=== PATIENT | male | born 1940 | race Caucasian/White ===

== ENCOUNTER 2016-08-26 13:27 | Emergency (ER) | payer MEDICARE ==
[2016-08-26] MEDS ORDERED: ALBUTEROL SULFATE 2.5 MG/3 ML VIAL.NEB IH ONE (14:02)
[2016-08-26] MEDS ORDERED: ALBUTEROL SULFATE 2.5 MG/0.5 ML VIAL.NEB IH ONE (14:03)
[2016-08-26 14:15] LABS: Hemoglobin 15.3 gm/dL (13.5-18.0); Mean Cell Volume 86.5 fl (78-100); Mean Corpuscular Hemoglobin 29.4 pg (27-31); Neutrophil # 6.9 K/mm3 (1.3-6.0); Neutrophil % 79.6 % (42-75.0); Platelet Count 319 K/mm3 (150-450); Red Cell Distribution Width 12.6 % (11.5-14.0); White Blood Count 8.7 K/mm3 (4.0-10.5)
--- NOTE | 2016-08-26 14:18 | ERNOTE ---
Dizziness ER Record Presenting Symptoms: dizziness Time Seen by Provider: 08/26/16 13:43 Source: patient Exam Limitations: no limitations Immunizations: IMMUNIZATION HX Immunizations Up to Date No History of Influenza Vaccine No Hx Pneumococcal Vaccination No Allergies/Adverse Reactions: Allergies Allergy/AdvReac Type Severity Reaction Status Date / Time prednisone Allergy Verified 08/26/16 14:37 Home Medications: HOME MEDICATIONS Levothyroxine Sodium [Synthroid] 50 mcg PO DAILY 12/11/14 [Last Taken Unknown] Albuterol Sulfate [Proventil Hfa] 2 puff IH PRN PRN 09/26/15 [Last Taken Unknown ] Budesonide/Formoterol Fumarate [Symbicort 160-4.5 Mcg Inhaler] 2 puff IH BID [Last Taken Unknown] Xanax 0.25 mg PO TID PRN 10/10/15 [Last Taken Unknown] - History of Present Illness Narrative: Patient has been dizzy for about three weeks, the symptoms get worse at times , not sure whether that is related to head movement. He has had a tinnitus intermittently for a while, chronic hearing loss, no neuro deficits, no other symptoms Associated Symptoms: Present: hearing loss, ringing/roaring in ear, light headedness. Absent: ear pain, nausea, vomiting, sense of confusion Sense of movement: Present: vague Decreased ability to stand/walk:: Present: walks w/o assistance Usually:: Present: walks w/o assistance Modifying Factors - (Improves): Reports: changing position Prior Treament: Reports: recently seen - by PCP for ingrown toenail. Denies: similar symptoms before Review of Systems - Review of Systems Constitutional: Present: fatigue. Absent: recent illness, fever EYE: Absent: vision changes ENT: Absent: nose congestion, sore throat Respiratory: Absent: shortness of breath Cardiology: Absent: chest pain Gastrointestinal/Abdominal: Absent: nausea, abdominal pain Genitourinary: Present: no symptoms reported Musculoskeletal: Absent: back pain, neck pain Skin: Absent: rash Neurological: Present: dizziness/light-headedness. Absent: headache, weakness, numbness - Patient's Past Medical History Patient History - Medical: Anxiety, Chronic Pain, Hypothyroidism, Other Patient History - Cardiac/Respiratory: CVA/Stroke Patient History - Cancer: No Hx of Cancer Patient History - Surgical Procedures: Other Patient History - Other: None - Family History Parents Family History - Medical: , No pertinent hx - Social History Living Situations: alone Abuse History: No History of abuse Psych History: Hx of Anxiety Smoking Status: Former smoker Have you smoked in the past 12 months: Yes Alcohol Use: occasionally Drug Use: none - Immunizations Immunizations Up to Date: No Hx Pneumococcal Vaccination: No History of Influenza Vaccine: No Physical Exam - Physical Exam General Appearance: Present: wd/wn, alert, no apparent distress Head Exam: Present: normal inspection, no evidence of injury Eye Exam: Normal inspection: bilateral, PERRL: bilateral, EOMI: bilateral Ears, Nose, Throat: Present: normal ENT inspection, normal pharynx Neck: Present: normal inspection, nontender, supple, full range of motion Respiratory: Present: no respiratory distress, normal breath sounds, no accessory muscle use, lungs clear Cardiovascular/Chest: Present: regular rate, rhythm, no murmur Gastrointestinal/Abdominal: Present: normal bowel sounds, nontender, nondistended, soft Neurological Exam: Present: alert, oriented, normal mood/affect, no motor/ sensory deficits, 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 - Vital Signs Patient's Vital Signs:: I have reviewed the patient's vital signs. Vital Signs: Vital Signs 08/26/16 08/26/16 08/26/16 13:33 13:49 14:09 Temperature 37.0 C Pulse Rate 121 H 87 86 Respiratory 16 16 16 Rate Blood Pressure 131/79 137/80 O2 Sat by Pulse 91 93 95 Oximetry - EKG EKG: NSR, RBBB, unchanged from EKG read: Interp. by me - Progress/Reassessment Chief Complaint: Dizziness Progress Note-Subjective: 08/26/16 14:56 discussed results and plan with patient, made appointment for tomorrow at PT Departure Clinical Impression: Benign positional vertigo Qualifiers: Laterality: left Qualified Code(s): H81.12 - Benign paroxysmal vertigo, left ear COPD (chronic obstructive pulmonary disease) Qualifiers: COPD type: unspecified COPD Qualified Code(s): J44.9 - Chronic obstructive pulmonary disease, unspecified - Departure Disposition: Home self-care Condition: Good Instructions: Benign Positional Vertigo Additional Instructions: go to physical therapy tomorrow for an 08:00 appointment Referrals: Mario Moulton DO [Primary Care Provider] -
[2016-08-26 14:37] VITALS: BP 121/80
[2016-08-26 14:38] LABS: ALT 20 U/L (19-67); AST 18 U/L (0-48); Albumin * 3.6 gm/dl (3.4-5.0); Alkaline Phosphatase * 72 U/L (50-170); Anion Gap 13.1 mmol/L (6.8-13.8); BUN/Creatinine Ratio 15.7 (9.0-21.6); Bilirubin, Total 0.7 mg/dL (0.0-1.1); Blood Urea Nitrogen 17 mg/dL (6-23); Ca. Corrected For Albumin 9.1 mg/dL (8.4-10.2); Calcium * 9.1 mg/dL (7.9-10.9); Carbon Dioxide 28.1 mmol/L (24-32.6); Chloride 103 mmol/L (97-106); Glucose * 111 mg/dL (70-110); Potassium 4.2 mmol/L (3.4-4.6); Sodium 140 mmol/L (132-142); TSH * 2.553 uIU/mL (0.358-3.74); Total Protein 7.5 gm/dL (6.2-8.2)
[2016-08-26 14:45] LABS: Troponin I Less than 0.017 ng/ml (0.00-0.10)
== END 2016-08-26 15:11 | disposition home or self-care (01) ==
LOC: ER 13:27
DX: H81.12 Benign paroxysmal vertigo, left ear (principal); J44.9 Chronic obstructive pulmonary disease, unspecified; G89.29 Other chronic pain; E03.9 Hypothyroidism, unspecified; Z86.73 Personal history of transient ischemic attack (TIA), and cerebral infarction without residual deficits; F41.8 Other specified anxiety disorders; Z72.0 Tobacco use

== ENCOUNTER 2018-01-10 06:13 | Inpatient (IN) ==
[~2018-01-10 06:13] MED LIST: RINGER'S SOLUTION,LACTATED 1,000 ML IV PRN; ceFAZolin SODIUM 1 GM VIAL IV PRN
--- NOTE | 2018-01-10 07:33 | ANES ---
Anesthesia Pre Procedure Eval Vitals/Labs: Last Vital Signs Temp 36.2 C 01/10/18 06:23 Pulse 92 01/10/18 06:23 Resp 16 01/10/18 06:23 BP 124/75 01/10/18 06:23 HOME MEDICATIONS albuterol sulfate HFA 90 mcg/actuation aerosol inhaler 2 puff INHALATION PRN PRN #18 g 11/24/17 [Last Taken Unknown] budesonide-formoterol HFA 160 mcg-4.5 mcg/actuation aerosol inhaler 2 puff INHALATION BID #10.2 g 11/24/17 [Last Taken 01/09/18] cyclobenzaprine 10 mg tablet 10 mg PO TID PRN #30 tab 11/24/17 [Last Taken Unknown] fluoxetine 20 mg capsule 20 mg PO DAILY #30 cap 11/24/17 [Last Taken 01/09/18] ibuprofen 800 mg tablet 800 mg PO TID PRN #60 tab 11/24/17 [Last Taken Unknown] levothyroxine 50 mcg tablet 50 mcg PO DAILY #90 tab 11/24/17 [Last Taken 01/09/18] tamsulosin 0.4 mg capsule 0.4 mg PO DAILY #90 cap 11/24/17 [Last Taken 01/09/18] alprazolam 1 mg tablet 1 mg PO BID PRN #60 tab 12/07/17 [Last Taken 01/09/18] coenzyme Q10 200 mg capsule 200 mg PO DAILY #90 cap 12/07/17 [Last Taken 01/09/18] atorvastatin 20 mg tablet 20 mg PO DAILY #30 tab 12/27/17 [Last Taken 01/09/18] gabapentin 300 mg capsule 300 mg PO TID #90 cap 12/27/17 [Last Taken 01/09/18] hydrocodone 10 mg-acetaminophen 325 mg tablet 1 tab PO QID PRN #120 tab 12/27/17 [Last Taken 01/08/18] rivastigmine 13.3 mg/24 hour transdermal patch 13.3 mg TRANSDERMAL DAILY #30 ea 12/27/17 [Last Taken 01/09/18] Allergies/Adverse Reactions: Allergies Allergy/AdvReac Type Severity Reaction Status Date / Time prednisone AdvReac Intermediate personality Verified 01/10/18 06:27 changes - Planned Procedure Planned Procedure: Arthroplasty Total Shoulder Reverse Left Medication List Reviewed:: Yes Allergies Verified: Yes Medical History (Last Reviewed 01/10/18 @ 07:32 by Dequan Still CRNA) LVH (left ventricular hypertrophy) (Acute) ASCVD (arteriosclerotic cardiovascular disease) (Chronic) Aortic aneurysm (Chronic) Depression (Chronic) Memory loss or impairment (Chronic) Lumbar radiculopathy, right (Chronic) Burning in the R. lateral thigh and slapping feet when walking. Generalized anxiety disorder with panic attacks (Chronic) Frozen shoulder (Chronic) Lung nodule (Resolved) Onset Date: Unknown Hypothyroidism (Chronic) Onset Date: Unknown GERD (gastroesophageal reflux disease) (Chronic) Onset Date: Unknown COPD (chronic obstructive pulmonary disease) (Chronic) Onset Date: Unknown CVA (cerebral vascular accident) (Resolved) Onset Date: Unknown BPH (benign prostatic hyperplasia) (Chronic) Onset Date: Unknown Arthritis (Chronic) Onset Date: Unknown Anxiety (Chronic) Onset Date: Unknown AAA (abdominal aortic aneurysm) (Chronic) Onset Date: Unknown COPD (chronic obstructive pulmonary disease) (Chronic) Onset Date: Unknown Hypothyroidism (Chronic) Onset Date: Unknown Surgical History (Last Reviewed 01/10/18 @ 07:32 by Dequan Still CRNA) History of tonsillectomy Onset Date: Unknown S/P cataract surgery Onset Date: Unknown S/P rotator cuff repair Onset Date: Unknown right Family History (Last Reviewed 01/10/18 @ 07:32 by Dequan Still CRNA) Mother Father Asthma ephysema - Family Anesthesia History Family History:: no untoward family reactions to anesthesia, no familial bleeding tendencies, no family history of clotting disorders, no family history of premature - Airway/Neck/Teeth Within Normal Limits:: Yes Denture Type: Full- Upper, Partial- Lower Neck Exam: limited range of motion Mallampatti Score: 2 Thyromental (T-M) distance: > 6 cm Mandibulo Hyoid distance: > 3 cm - Respiratory Respiratory: lungs clear Smoking Status: Former smoker Discussed smoking cessation including day of surgery: No Sleep Apnea currently treated: No Sleep Apnea by current assessment: No Discussed Risks/Treatment of LISY: No - Cardiovascular Tolerates Activity: Fair Heart Sounds: S1 & S2, Regular - Anesthesia Assessment and Plan ASA Class: PS, III Anesthesia Type Plan: General LMA, Block - Left ultrasound guided interscalene nerve block for postop analgesia
[2018-01-10] MEDS ORDERED: oxyCODONE HCL/ACETAMINOPHEN 1 TAB TABLET PO PRN (10:20)
[2018-01-10] MEDS ORDERED: MAG HYDROX/ALUMINUM HYD/SIMETH 30 ML UDC PO PRN (10:20)
[2018-01-10] MEDS ORDERED: MORPHINE SULFATE 2 MG/ML DISP.SYRIN IV PRN (10:20)
[2018-01-10] MEDS ORDERED: ONDANSETRON HCL/PF 2 MG/ML VIAL IV PRN (10:20)
[2018-01-10] MEDS ORDERED: diphenhydrAMINE HCL 50 MG/ML VIAL IV PRN (10:20)
[2018-01-10] MEDS ORDERED: ACETAMINOPHEN 500 MG TABLET PO PRN (10:20)
[2018-01-10] MEDS ORDERED: MAGNESIUM HYDROXIDE 30 ML UDC PO PRN (10:20)
--- NOTE | 2018-01-10 10:34 | OR ---
Operative Report - Dictated Report Narrative: Date: 01/10/2018 Surgeon: Osmani Chapman M.D. Machine Slat Basket Maker: Lele Cordova PA-C Preoperative diagnosis: Left shoulder rotator cuff arthropathy Postoperative diagnosis: Left shoulder rotator cuff arthropathy Procedure: Left reverse total shoulder arthroplasty Anesthesia: General plus regional Complications: None Estimated blood loss: 200 mL Specimens: Bone for disposal Retained implants: N[employer] Unite cementless size 12 modular stem Nadeem Delta Xtend size 2 modular eccentric epiphysis Nadeem Delta Xtend cementless metaglene Nadeem Delta Xtend standard 42 mm glenosphere Nadeem Delta Xtend 42 mm/+6 poly cup Drains: None Indications: Francisco is a 77 year-old male who has been followed in my clinic with complaints of shoulder pain consistent with rotator cuff arthropathy. Physical exam and diagnostic imaging were consistent with this. Conservative measures have failed including, but not limited to, passage of time, activity modification, medications, physical therapy/home exercise program, or injections. The risks, benefits, and alternatives were discussed in clinic. The risks being , bleeding, infection, blood clots, nerve, blood vessel injury, implant loosening/failure, persistent pain, stiffness, need for prolonged therapy, need for additional procedures, and persistent symptoms. Consent was obtained in the clinic. Procedure: After marking the correct extremity in the preoperative holding area, a timeout was performed in the operating room. IV antibiotics consisting of 2 g of Ancef were administered prior to the procedure. A general followed by regional anesthetic was induced by the nurse grip. This was in the supine position, then the patient was transitioned to a beachchair position with all bony prominences well-padded, head in neutral, the nonoperative arm well supported, and the legs padded with SCDs in place. The operative shoulder was then prepped and draped in a standard sterile fashion. Preoperatively the shoulder had full passive range of motion and no instability. A standard delt opectoral incision was marked out over the anterior shoulder approximately 12 cm in length. The skin was incised and dissection combination of electrocautery and Metzenbaum scissors was carried down through the subcutaneous tissue. The deltopectoral fascia was identified and the interval was developed using a combination of blunt finger dissection and dissection with Metzenbaum scissors. The cephalic vein was identified and protected. The deltoid and cephalic vein were retracted laterally and the pectoralis major muscle retracted medially revealing the anterior capsule of the shoulder and the conjoined tendon. The biceps tendon and bicipital groove was palpated and the tissue overlying this was incised but the long head of biceps tendon was absent. The lesser tuberosity was palpated and the subscapularis tendon was tagged with a 0 Vicryl stitch. This was then divided sharply with a knife leaving a small cuff of tissue attached to the lesser tuberosity for later repair. Blunt finger dissection was used to dissect the subscapularis away from the anterior glenoid neck. At this point the glenohumeral joint was dislocated delivering the humeral head out of the wound. The supraspinatus tendon was absent and the infraspinatus and teres were mostly intact. The entry reamer was advanced down into the intramedullary canal. Sequential hand reaming was carried out up to 12 mm with good cortical purchase. The humeral head cutting guide was then advanced down into place and set at 10 retroversion and the appropriate height. The cutting block was pinned into place and the rest of the jig was removed. The cutting block was then flipped over and an oscillating saw was used to make the humeral head cut. The protective cap was then placed over the cut end of the proximal humerus and this was then pushed posteriorly and inferiorly out of the way of the glenoid to give us good visualization of the glenoid. Attention was then turned to preparation of the glenoid. Glenoid retractors were placed anterior and posterior-inferiorly. Circumferential dissection was carried out around the glenoid releasing the capsule from the glenoid neck. The base of the coracoid was visualized and the medial scapular spine could be easily palpated. The labrum was then removed with a sharp knife. The pin guide was then placed on the glenoid to allow for inferior, slightly posterior, and slightly inferiorly tilted placement of our guide pin. This was advanced into the bone with good purchase. We confirmed appropriate position of the guidepin at this point. The central peg drill was then drilled over the guidepin. The cementless metaglene and was then impacted into place and placed in the appropriate rotation based on the location of the base of the coracoid and medial scapular spine. The superior and inferior screws were then drilled with good bone purchase. They were then measured and screws were placed with good purchase and good compression of the metaglene against the glenoid. The anterior and posterior screws were then drilled, measured, and placed. The superior and inferior locking screws were then locked into place. At this point we felt a 42 mm glenosphere was the appropriate size and the final glenosphere was screwed into the metaglene. Attention was turned back to the proximal humerus which was again delivered up and out of the wound. The proximal humeral reaming guide was then impacted into place in the appropriate rotation. The size 2 reaming guide was the appropriate size. The proximal humerus was then reamed out and additional bone was removed with a rongeur. The reaming guide was then removed and the proximal humerus was broached with the size 12 broach in the appropriate version. This was then checked and the eccentricity measurement was at 10 deg. A size 2 trial was then placed to ensure appropriate sizing. The trial was then removed and the proximal humerus was thoroughly irrigated. The final modular humeral implant was then assembled on the back table with eccentricity set at 10. The final humeral stem was then impacted into place. We then began trialing polyethylene and a 42 mm/+6 polyethylene gave the best stability while maintaining full range of motion. The trial was removed and the shoulder was thoroughly irrigated. The final polyethylene was impacted into place and the shoulder was reduced. A final check showed full range of motion with good stability of our implant. A soft tissue repair of the subscapularis was performed with #2 Ethibond. The wound was once again copiously irrigated with normal saline and then closed in a layered fashion. The deltopectoral fascia was closed in an interrupted fashion with 0 Vicryl. Subcutaneous tissue was closed with interrupted 3-0 Vicryl in a deep dermal fashion. Skin was then closed with a running subcuticular 3-0 Monocryl followed by a Prineo dressing. The wound was then dressed with 4 x 4's, ABDs, and foam tape. All sponge, needle, blade, and instrument counts were correct prior to closing the wounds. The patient was awoken and transferred to the postanesthesia care unit in stable condition.
--- NOTE | 2018-01-10 10:41 | ANES ---
Post Anesthesia Discharge - Transfer of Care Transfer of Care handoff given to nurse: Yes - Discharge from PACU Discharge from PACU when meets criteria: Yes - Discharge to ASU Discharge to ASU-no complications/pt stable: Yes
--- NOTE | 2018-01-10 10:43 | ANES ---
Anesthesia Procedure Note Procedure Note: ANESTHESIA PROCEDURE NOTE Date of Procedure: 01/10/2018. Time of procedure: 0745. Performed by: Dequan Still CRNA Wire Drawing Die Maker: None. Preprocedure diagnosis: Left shoulder rotator cuff arthropathy. Post procedure diagnosis: Same. Procedure: Left ultrasound guided interscalene nerve block for postoperative analgesia. Indications: The patient is a 77-year-old male, requesting left ultrasound- guided interscalene nerve block for postoperative analgesia related to left reverse total shoulder arthroplasty. Findings: See below. Details of the procedure: The tissue over the intended target site was cleansed with ChloraPrep. 1 ml Lidocaine 1 % was infiltrated to the skin and subcutaneous tissue. Under sterile technique and ultrasound guidance a 22-gauge block needle was inserted to the left brachial plexus nerve bundle between the anterior scalene and the middle scalene muscles. 40 mL's of 0.5% bupivacaine plus epinephrine 1:200,000 was injected after negative aspiration for blood. Needle tip and spread of local anesthetic around the brachial plexus was observed throughout the injection with realtime ultrasound visualization. The needle was removed intact. No complications were noted. The images were retained in the hospital medical database . EBL: Minimal. Fluids: N/A. Specimen: N/A. Post procedure condition: The patient tolerated the procedure well. No complications were noted. Thank you for this consultation. Dequan Still CRNA
[2018-01-10] MEDS: ceFAZolin SODIUM 2 GM in DEXTROSE 5 % IN WATER 50 ML IV SCH ×4 (11:18→20:31)
[2018-01-10] MEDS: NORMAL SALINE 1,000 ML IV PRN ×2 (11:18→20:23)
[2018-01-10] MEDS: oxyCODONE HCL/ACETAMINOPHEN 1 TAB TABLET PO PRN (11:31)
[2018-01-10] MEDS ORDERED: IBUPROFEN 800 MG TABLET PO PRN (18:20)
[2018-01-10] MEDS ORDERED: ALBUTEROL SULFATE 200 PUFF INHALER IH PRN (18:20)
[2018-01-10] MEDS ORDERED: HYDROcodone/ACETAMINOPHEN 1 EACH TABLET PO PRN (18:20)
[2018-01-10] MEDS ORDERED: CYCLOBENZAPRINE HCL 10 MG TABLET PO PRN (18:20)
[2018-01-10] MEDS ORDERED: ALBUTEROL SULFATE 2.5 MG/0.5 ML VIAL.NEB IH ONE (18:29)
--- NOTE | 2018-01-10 18:49 | PN ---
Subjective - Date and Time Seen Date: 01/10/18 Time: 18:26 Subjective Narrative: On Medicine Note: Mr. Cronin is a new pt. of mine who had a R TSA done today. Post operatively he is having no or very little pain. There were no intra-operative or postoperative complications until this evening. He has developed some cardiac dysrhythmia which appears to be a bigeminal pattern of widened QRS complexes that are very similar. These are creating a near R on T phenomena. This is an intermittent pattern and he goes back into normal sinus rhythm most of the time. Also his blood pressure is higher this evening than it has been all day. It is in the 176/92 range. He is having more wheezing and coughing up larger amounts of mucus. I have ordered albuterol breathing treatments for him. I discontinued the diphenhydramine for several reasons. I am adding Cardizem CD 240 mg one by mouth daily to help lower his blood pressure and regulate his heart rhythms. I have reconciled all of his medications and only held his statin and coenzyme Q 10. I will give him 2 mg of lorazepam at bedtime. And then tomorrow he can resume his alprazolam and Prozac. He appears to be overstimulated at present. He has not slept at all since surgery, has no appetite this evening, and yet his heart rate and blood pressure are elevated and there is this new bigeminal dysrhythmia to consider. I will follow along medically and I will see him again tomorrow morning. Objective Objective Narrative: Vital signs at present are 170/74, pulse is 98, respirations are 20 with prolonged expiratory phase and some coughing. Auscultation reveals bilateral wheezes. He does have COPD with asthma chronically his color is excellent. He is fully alert and awake and conversant and appropriate. He is concerned about not being able to sleep tonight. The abdomen is soft and nontender bowel sounds are normal. Skin is warm dry and pink. At the time of my exam is back in normal sinus rhythm. - Review of Systems Generalized/Overall Review: Reports: No Symptoms Reported EENTM: Reports: No Symptoms Reported Respiratory: Reports: Cough, Shortness of Breath, Wheezing Cardiac: Reports: Palpitations Abdominal: Reports: No Symptoms Reported. Denies: Nausea, Vomiting, Abdominal Pain, Constipation, Diarrhea Musculoskeletal Complaints: Reports: No Symptoms Reported, Other. Denies: Joint Pain - surprisingly very little discomfort in the L shoulder. Nerve block apears to be working very well. Neurological: Reports: Parasthesia - L. neck and L. hand Skin: Reports: No Symptoms Reported Endocrine: Reports: No Symptoms Reported Misc: All systems neg except as marked - Vitals Vitals: Last Vital Signs Temp 36.9 C 01/10/18 16:58 Pulse 98 01/10/18 16:58 Resp 16 01/10/18 16:58 BP 170/74 H 01/10/18 16:58 Pulse Ox 100 01/10/18 16:58 - EKG/Xray Findings EKG: other - Intermittent bigeminal PVCs, RBBB, Possible old inferior wall OH. EKG read: Interp. by me XRAY: chest - L. pleural effusion Interpretation: Reviewed by me - Exam Constitutional: Present: Alert, Oriented x3, Cooperative, Well developed, Well nourished, No distress, Elderly ENT Exam: Present: normal ENT inspection, hearing grossly normal, pharynx normal, TMs normal Neck: Present: non-tender, supple, normal inspection Breasts: Present: Nontender Respiratory: Present: chest non-tender, decreased breath sounds, rhonchi, wheezing, expiration (prolonged) Cardiovascular/Chest: Present: normal peripheral pulses, no chest tenderness, no edema, no gallop, no JVD, no murmur, no rub Abdomen: Present: Normal bowel sounds, soft, nontender, nondistended, no rebound tenderness, no hepatospenomegaly, no masses /Rectal: Present: Exam deferred Extremity: Present: non-tender, no pedal edema, no calf tenderness, normal capillary refill Skin Exam: Present: normal color, warm/dry, no cyanosis Lymphatic: Present: no adenopathy Neurologic: Present: roller inspector II-XII nml as tested, no motor/sensory deficits, alert, normal mood/affect, other - appears anxious Appearance: Present: appropriate appearance, appropriate insight, neat, no memory impairment Eye contact: Present: cooperative, good eye contact, normal speech Thoughts: Present: normal thought pattern
[2018-01-10] MEDS ORDERED: DILTIAZEM HCL 240 MG CAP.SR.24H PO SCH (20:00)
[2018-01-10] MEDS: FLUTICASONE/SALMETEROL 14 PUFF DISK.W.DEV IH SCH (20:26)
[2018-01-10] MEDS: GABAPENTIN 300 MG CAPSULE PO SCH (20:36)
[2018-01-10] MEDS ORDERED: ALBUTEROL SULFATE 2.5 MG/0.5 ML VIAL.NEB IH SCH (21:00)
[2018-01-10] MEDS ORDERED: TAMSULOSIN HCL 0.4 MG CAP.SR.24H PO SCH (21:00)
[2018-01-10] MEDS ORDERED: LORazepam 1 MG TABLET PO SCH (21:00)
[2018-01-10] MEDS ORDERED: SENNOSIDES/DOCUSATE SODIUM 1 TAB TABLET PO SCH (21:00)
[2018-01-10] MEDS ORDERED: ALBUTEROL SULFATE 2.5 MG/0.5 ML VIAL.NEB IH PRN (22:54)
[2018-01-11] MEDS: ALBUTEROL SULFATE 2.5 MG/0.5 ML VIAL.NEB IH SCH ×3 (01:52→13:05)
[2018-01-11] MEDS ORDERED: ALPRAZolam 1 MG TABLET ONE (02:02)
[2018-01-11] MEDS: oxyCODONE HCL/ACETAMINOPHEN 1 TAB TABLET PO PRN ×2 (03:46→08:38)
[2018-01-11] MEDS: ceFAZolin SODIUM 2 GM in DEXTROSE 5 % IN WATER 50 ML IV SCH ×2 (03:48)
[2018-01-11] MEDS ORDERED: ALBUTEROL SULFATE 2.5 MG/0.5 ML VIAL.NEB IH SCH (07:00)
[2018-01-11] MEDS ORDERED: ALPRAZolam 1 MG TABLET PO PRN (07:00)
[2018-01-11] MEDS ORDERED: LEVOTHYROXINE SODIUM 50 MCG TABLET PO SCH (07:00)
[2018-01-11] MEDS ORDERED: FLUoxetine HCL 20 MG CAPSULE PO SCH (09:00)
[2018-01-11] MEDS: FLUTICASONE/SALMETEROL 14 PUFF DISK.W.DEV IH SCH (09:45)
[2018-01-11] MEDS: GABAPENTIN 300 MG CAPSULE PO SCH (09:47)
--- NOTE | 2018-01-11 13:23 | DS ---
(1) Status post reverse arthroplasty of left shoulder Problem: Acute Description of Stay: Patient was admitted postoperatively after a left reverse total shoulder arthroplasty. He was admitted for observation to monitor return to p.o. diet, pain control with p.o. pain medication, recovery from sedation. Patient did h ave a period of bigeminy on the monitor and EKG after surgery. Medicine was consulted patient returned to a sinus rhythm and has not had any since episodes. His primary care provider Dr. Adams states that patient is stable for discharge. Patient at this time is tolerating p.o. diet, pain is well controlled with oral pain medication, bandages have been removed and there is no significant drainage at this time. Note for nail was reinforced with Dermabond after postoperative bandage removed. Patient will follow-up in orthopedic outpatient clinic at [address] Chapman. Patient will begin PT outpatient, he will maintain use of sling immobilizer at all later times. He can call our office with any acute questions or concerns. Note patient does have chronic pain medication as well as uses benzodiazepines. Had a lengthy discussion about respiratory depression with patient and things to look for while taking pain medication postoperatively. Discussed if any acute changes to call and/or present to the ER. Patient and were both their expressed understanding at this time. Procedures Performed: see notes below List Procedures: left reverse total shoulder arthroplasty Discharge Location: Home Disposition: Home self-care Condition: Good Discharge Activity: Activity as tolerated, Non-Weight bearing - LUE Discharge Diet: General/regular food Referrals: Yonatan Adams DO [Primary Care Provider] - Print Language (Guyanese or Zambian Available): Guyanese Additional Patient Instructions (free text): Follow up therapy at [facility] rehab Follow up with Dr Chapman Orthopedic appt. on TuesdayJanuary 25 at 10:30am. Prescriptions (Any new or edited meds): oxyCODONE HCL/ACETAMINOPHEN [Percocet 5 MG/325 MG] 1 - 2 tab PO Q4H PRN #60 tab PRN Reason: Severe Pain (Pain Scale 7-10) Complete Home Medications List: Complete Home Medication List: albuterol sulfate HFA 90 mcg/actuation aerosol inhaler 2 puff INHALATION PRN PRN #18 g 11/24/17 budesonide-formoterol HFA 160 mcg-4.5 mcg/actuation aerosol inhaler 2 puff INHALATION BID #10.2 g 11/24/17 cyclobenzaprine 10 mg tablet 10 mg PO TID PRN #30 tab 11/24/17 fluoxetine 20 mg capsule 20 mg PO DAILY #30 cap 11/24/17 ibuprofen 800 mg tablet 800 mg PO TID PRN #60 tab 11/24/17 levothyroxine 50 mcg tablet 50 mcg PO DAILY #90 tab 11/24/17 alprazolam 1 mg tablet 1 mg PO BID PRN #60 tab 12/07/17 coenzyme Q10 200 mg capsule 200 mg PO DAILY #90 cap 12/07/17 hydrocodone 10 mg-acetaminophen 325 mg tablet 1 tab PO QID PRN #120 tab 12/27/17 rivastigmine 13.3 mg/24 hour transdermal patch 13.3 mg TRANSDERMAL DAILY #30 ea 12/27/17 Atorvastatin Calcium [Lipitor] 20 mg PO HS 01/10/18 Gabapentin 300 mg PO BID 01/10/18 Tamsulosin HCl [Flomax] 0.4 mg PO HS 01/10/18 Sennosides/Docusate Sodium [Senokot-S] 1 tab PO BID PRN #30 tablet 01/11/18 oxyCODONE HCL/ACETAMINOPHEN [Percocet 5 MG/325 MG] 1 - 2 tab PO Q4H PRN #60 tab 01/11/18
[2018-01-11 16:02] VITALS: BP 107/58
== END 2018-01-11 16:20 | disposition home or self-care (01) | DRG 483 ==
LOC: MS 06:13
PROVIDERS: ADMIT Orthopaedic Surgery; ATTEND Orthopaedic Surgery
CPT/HCPCS: 71010; 71045; 73030; 93005; 94640; 94664; 97110; 97116; 97162; 97165

== ENCOUNTER 2019-02-15 17:26 | Observation (INO) ==
--- NOTE | 2019-02-15 18:09 | ERNOTE ---
Date of Service: 02/15/19 Time Seen by Provider: 02/15/19 17:59 Stated Complaint: shaky light headed and balance off Presenting Symptoms:: cough Source: patient, RN notes reviewed Exam Limitations: no limitations Immunizations: IMMUNIZATION HX Immunizations Up to Date Yes History of Influenza Vaccine Yes Hx Pneumococcal Vaccination Yes Allergies/Adverse Reactions: Allergies oxycodone [From Percocet] Allergy (Verified 02/12/19 13:52) prednisone Adverse Reaction (Intermediate, Verified 02/12/19 13:52) personality changes Home Medications: HOME MEDICATIONS Gabapentin 300 mg PO BID 07/13/18 [Last Taken Unknown] Melatonin 10 mg PO HS 07/13/18 [Last Taken Unknown] atorvastatin 20 mg tablet 20 mg PO HS #90 tab 08/22/18 [Last Taken Unknown] albuterol sulfate 90 mcg/actuation aerosol inhaler 2 inh IH Q8H PRN 02/12/19 [Last Taken Unknown] budesonide-formoterol HFA 160 mcg-4.5 mcg/actuation aerosol inhaler 2 puff IH BID g 02/12/19 [Last Taken Unknown] alprazolam 1 mg tablet 1 mg PO BID PRN #30 tab 02/13/19 [Last Taken Unknown] diltiazem HCl 180 mg capsule,extended release 24 hr See Rx Instructions .ROUTE .COMPLEX #30 cap 02/13/19 [Last Taken Unknown] fluoxetine 20 mg capsule 20 mg PO DAILY #30 cap 02/13/19 [Last Taken Unknown] hydrocodone 10 mg-acetaminophen 325 mg tablet 1 tab PO BID PRN #30 tab 02/13/19 [Last Taken Unknown] levothyroxine 50 mcg tablet 50 mcg PO DAILY #30 tab 02/13/19 [Last Taken Unknown] tamsulosin 0.4 mg capsule 0.4 mg PO DAILY #30 cap 02/13/19 [Last Taken Unknown] temazepam 30 mg capsule 30 mg PO HS #30 cap 02/13/19 [Last Taken Unknown] - History of Present Ilness Narrative: Francisco is a 78-year-old male brought to the emergency department by his from home for generalized weakness and shakiness. He states that he began to not feel well yesterday. He has had a productive cough with yellow to brown sputum. He has a history of COPD. He is a former smoker. His states that he has been agitated and somewhat confused for the past couple of days. Date (Duration): 02/14/19 Timing: getting worse Frequency/Possible Cause: Reports: unknown cause Prior Treatment: Reports: recently seen - by PCP for unrelated issue Review of Systems - Review of Systems Constitutional: Present: fatigue, malaise. Absent: fever, chills EYE: Present: no symptoms reported ENT: Present: nose congestion, nasal drainage. Absent: ear pain, sore throat Respiratory: Present: shortness of breath, cough, wheezing. Absent: orthopnea Cardiology: Absent: chest pain, syncope, edema Gastrointestinal/Abdominal: Absent: nausea, vomiting, abdominal pain Genitourinary: Present: no symptoms reported Musculoskeletal: Present: back pain. Absent: joint pain Skin: Absent: rash, lesions Neurological: Present: dizziness/light-headedness, weakness. Absent: headache Endocrine: Present: no symptoms reported Hematologic/Lymphatic: Absent: easy bruising, easy bleeding Psych: Present: anxiety Medical History (Last Reviewed 02/15/19 @ 21:59 by Katiuska Marshall NP) Post concussion syndrome (Acute) Fall (Acute) Chronic pain syndrome (Chronic) Hypersomnolence (Chronic) Fatigue (Chronic) Low back pain (Chronic) Osteoarthritis, shoulder (Acute) Onset Date: Unknown Acute purulent bronchitis (Acute) LVH (left ventricular hypertrophy) (Acute) ASCVD (arteriosclerotic cardiovascular disease) (Chronic) Aortic aneurysm (Chronic) Depression (Chronic) Memory loss or impairment (Chronic) Lumbar radiculopathy, right (Chronic) Burning in the R. lateral thigh and slapping feet when walking. Generalized anxiety disorder with panic attacks (Chronic) Frozen shoulder (Chronic) Lung nodule (Resolved) Onset Date: Unknown Hypothyroidism (Chronic) Onset Date: Unknown GERD (gastroesophageal reflux disease) (Chronic) Onset Date: Unknown COPD (chronic obstructive pulmonary disease) (Chronic) Onset Date: Unknown CVA (cerebral vascular accident) (Resolved) Onset Date: Unknown BPH (benign prostatic hyperplasia) (Chronic) Onset Date: Unknown Arthritis (Chronic) Onset Date: Unknown Anxiety (Chronic) Onset Date: Unknown AAA (abdominal aortic aneurysm) (Chronic) Onset Date: Unknown COPD (chronic obstructive pulmonary disease) (Chronic) Onset Date: Unknown Hypothyroidism (Chronic) Onset Date: Unknown Surgical History: Surgical History (Last Reviewed 02/15/19 @ 21:59 by Ktaiuska Marshall NP) S/p reverse total shoulder arthroplasty Onset Date: 01/10/18 History of tonsillectomy Onset Date: Unknown S/P cataract surgery Onset Date: Unknown S/P rotator cuff repair Onset Date: Unknown right Family History: Family History (Last Reviewed 02/15/19 @ 21:59 by Katiuska Marshall NP) Mother Father Asthma ephysema Social History: (Last Reviewed 02/15/19 @ 21:59 by Katiuska Marshall NP) Social History: Marital status: household members: spouse current occupational status: retired Highest education level completed: high school graduate Service: No Tobacco: Smoking Status: Former smoker Alcohol: alcohol intake: current alcohol intake frequency: a few times a week Substance Use: substance use type: does not use Dietary Habits: caffeine: Yes Type: coffee, tea Physical Exam - Physical Exam General Appearance: Present: wd/wn, alert, mild distress Head Exam: Present: normal inspection Eye Exam: Normal inspection: bilateral Ears, Nose, Throat: Present: normal ENT inspection, normal pharynx Neck: Present: normal inspection, nontender, supple Respiratory: Present: accessory muscle use, decreased breath sounds - bilateral bases, expiration (prolonged), crackles - fine, bilateral lower lung [place] Cardiovascular/Chest: Present: regular rate, rhythm, no murmur, normal pe ripheral pulses Gastrointestinal/Abdominal: Present: nontender, soft, distended - bloated appearing Extremity Exam: Present: normal inspection, non-tender, no edema Neurological Exam: Present: alert, oriented, other - anxious, fidgety. Absent: normal mood/affect Skin Exam: Present: normal color, warm/dry Progress - Results and Orders Patient's Lab Results:: I have reviewed the patient's lab results. - Vital Signs Patient's Vital Signs:: I have reviewed the patient's vital signs. Vital Signs: Vital Signs 02/15/19 17:37 Temperature 36.9 C Pulse Rate 89 Respiratory Rate 18 Blood Pressure 139/77 O2 Sat by Pulse Oximetry 85 L - EKG EKG #1 EKG: NSR, RBCB EKG read: Reviewed by me - X-Ray X-Ray #1 X-Ray: chest Interpretation: Reviewed by me X-ray Comments: FINDINGS: Low lung volumes. Bibasilar heterogeneous opacities, left greater than right. Stable cardiomediastinal silhouette and tortuous, atherosclerotic thoracic aorta. Small bilateral pleural effusions. No pneumothorax. Mild vascular indistinctness. No acute osseous abnormality. Reverse total shoulder arthroplasty on the left. IMPRESSION: 1. Mild vascular indistinctness may relate to mild interstitial edema. 2. Small bilateral pleural effusions and probable adjacent relaxation atelectasis, left greater than right. Superimposed infection or aspiration not excluded. Electronically signed by Soraya Gallardo D.O.. - CT/Ultrasound CT/Ultrasound Narrative: Chest CTA: IMPRESSION: 1. Motion artifact degrades evaluation. Nondiagnostic exam of the segmental and subsegmental pulmonary arteries due to motion artifact. No central pulmonary thromboembolic disease. 2. Bibasilar heterogeneous opacities, increased from prior exam. This could represent subsegmental atelectasis. Superimposed infection not excluded. 3. Aneurysmal dilatation of the adjacent thoracic 4.1 cm diameter. 4. Noncalcified plaque at the proximal left common carotid artery resulting in mild stenosis. 5. Additional chronic findings, as above. Electronically signed by Soraya Gallardo D.O.. - Progress/Reassessment Chief Complaint: General Assessment Progress:: Unchanged Plan - Plan Plan: Clearance has been hypoxic on room air with his sats dropping into the mid to lower 80s at times. This is improved with oxygen at 3 L via nasal cannula and he is now primarily in the lower 90s. He has an occasional cough and is easily dyspneic with exertion. He does seem somewhat confused at times. This may be related to hypoxia or possibly just to his underlying illness. He was given a DuoNeb while in the emergency department without much change. He tested negative for influenza. He does not have an elevated white count or lactic acid. His d-dimer was elevated but his chest CT did not show any central pulmonary emboli. He also denies chest pain. Dr. Elizondo was contacted and the patient will be admitted to observation status for supplemental oxygen and treatment of what appears to be a COPD exacerbation. He has been given a dose of Solu-Medrol and IV Levaquin has been ordered. Departure Clinical Impression: COPD with acute exacerbation, Hypoxia - Departure Disposition: Still a patient Condition: Stable Referrals: Yonatan Adams DO [Primary Care Provider] -
[2019-02-15 18:45] LABS: Hematocrit 41.4 % (42.0-52.0); Hemoglobin 13.2 gm/dL (13.5-18.0); Mean Corpuscular Hgb Conc 31.9 g/dl (32-36); Mean Platelet Volume 9.1 fl (8-11.3); Platelet Count 183 K/mm3 (150-450); Red Blood Count 4.55 M/mm3 (4.7-6.0)
[2019-02-15 18:49] LABS: Total Cells Counted 100
[2019-02-15 18:57] LABS: Albumin * 3.3 gm/dl (3.4-5.0); Anion Gap 13.2 mmol/L (6.8-13.8); BUN/Creatinine Ratio 25.9 (9.0-21.6); Bilirubin, Total 1.1 mg/dL (0.0-1.1); Ca. Corrected For Albumin 8.4 mg/dL (8.4-10.2); Calcium * 8.2 mg/dL (7.9-10.9); Carbon Dioxide 24.6 mmol/L (24-32.6); Potassium 4.8 mmol/L (3.4-4.6); Total Protein 6.7 gm/dL (6.2-8.2)
[2019-02-15 19:11] LABS: Band 24 % (0-2.0); Eosinophil 2 % (0-3); Lymphocyte 8 % (20-51); Monocyte 7 % (0-9); Neutrophil 59 % (42-75); Platelet Estimate Normal (NORMAL)
[2019-02-15 19:12] LABS: RBC Morphology Normal (NORMAL); Toxic Granulation 2+
[2019-02-15] MEDS ORDERED: ALBUTEROL SULFATE/IPRATROPIUM 3 ML NEBU IH ONE ×2 (19:48→19:49)
[2019-02-15 20:07] LABS: BNP * 951 pg/mL (5-650)
[2019-02-15 20:08] LABS: Troponin I Less than 0.017 ng/mL (0.00-0.10)
[2019-02-15] MEDS ORDERED: ALPRAZolam 0.25 MG TABLET PO ONE (20:24)
[2019-02-15] MEDS ORDERED: METHYLPREDNISOLONE SOD SUCC/PF 125 MG/2 ML VIAL IV ONE (21:59)
[2019-02-15] MEDS ORDERED: LEVOFLOXACIN IN DEXTROSE 5 % 750 MG/150 ML BAG IV ONE (21:59)
[2019-02-15] MEDS ORDERED: ALBUTEROL SULFATE/IPRATROPIUM 3 ML NEBU IH SCH (22:30)
[2019-02-16] MEDS ORDERED: ALBUTEROL SULFATE/IPRATROPIUM 3 ML NEBU IH SCH (01:00)
[2019-02-16] MEDS ORDERED: ALPRAZolam 1 MG TABLET PO PRN (06:21)
[2019-02-16] MEDS ORDERED: HYDROcodone/ACETAMINOPHEN 1 EACH TABLET PO PRN (06:21)
--- NOTE | 2019-02-16 06:23 | HP ---
Chief Complaint - Chief Complaint Date of Service: 02/16/19 Time of Service: 06:23 Chief Complaint: SOB History of Present Illness: Francisco is a 78-year-old male with PMHx of ASCVD, CVA, Aortic Aneurysm, LVH, COPD (former smoker), Dementia, GERD, BPH, Hypothyroidism, MDD, DANAY and OA admitted for SOB, Hypoxemia secondary to Acute exacerbation of COPD. Brought to the emergency department by his from home for generalized weak ness and shakiness. He states that he began to not feel well yesterday. He has had a productive cough with yellow to brown sputum. His states that he has been agitated and somewhat confused for the past couple of days. No F/C. Upon arrival to ER, VSS with exception of hypoxemia and started 2-3 L NC with goal to maintain above 90-94%. CXR was consistent with Cardiomegaly and pulmonary vascular congestion, but no pleural effusion appreciated. EKG demonstrated NSR, RBBB with marked left axis deviation. Labs were significant for VIJAY on CKD, Hyperkalemia of 4.8, Hyperglycemia, 113, Low albumin of 3.3 and BNP of 951. Seen on [facility], patient states he is not oxygen depedent, no history of heart failure that he is aware off. States he has been getting progressively SOB with exertion over the last couple of weeks. PE distant expiratory wheezing of LL BL, hard to appreciate any other breath sounds due to habitus with BL LE Edema Discussed with patient will treat him for COPD exacerbation and evaluate his heart. Patient voiced understanding. Medical History (Last Reviewed 02/15/19 @ 23:53 by Mora Mathews RN) Post concussion syndrome (Acute) Fall (Acute) Chronic pain syndrome (Chronic) Hypersomnolence (Chronic) Fatigue (Chronic) Low back pain (Chronic) Osteoarthritis, shoulder (Acute) Onset Date: Unknown Acute purulent bronchitis (Acute) LVH (left ventricular hypertrophy) (Acute) ASCVD (arteriosclerotic cardiovascular disease) (Chronic) Aortic aneurysm (Chronic) Depression (Chronic) Memory loss or impairment (Chronic) Lumbar radiculopathy, right (Chronic) Burning in the R. lateral thigh and slapping feet when walking. Generalized anxiety disorder with panic attacks (Chronic) Frozen shoulder (Chronic) Lung nodule (Resolved) Onset Date: Unknown Hypothyroidism (Chronic) Onset Date: Unknown GERD (gastroesophageal reflux disease) (Chronic) Onset Date: Unknown COPD (chronic obstructive pulmonary disease) (Chronic) Onset Date: Unknown CVA (cerebral vascular accident) (Resolved) Onset Date: Unknown BPH (benign prostatic hyperplasia) (Chronic) Onset Date: Unknown Arthritis (Chronic) Onset Date: Unknown Anxiety (Chronic) Onset Date: Unknown AAA (abdominal aortic aneurysm) (Chronic) Onset Date: Unknown COPD (chronic obstructive pulmonary disease) (Chronic) Onset Date: Unknown Hypothyroidism (Chronic) Onset Date: Unknown Surgical History: Surgical History (Last Reviewed 02/15/19 @ 23:53 by Mora Mathews RN) S/p reverse total shoulder arthroplasty Onset Date: 01/10/18 History of tonsillectomy Onset Date: Unknown S/P cataract surgery Onset Date: Unknown S/P rotator cuff repair Onset Date: Unknown right Family History: Family History (Last Reviewed 02/15/19 @ 23:53 by Mora Mathews RN) Mother Father Asthma ephysema Social History: (Last Reviewed 02/15/19 @ 23:53 by Mora Mathews RN) Social History: Marital status: household members: spouse current occupational status: retired Highest education level completed: high school graduate Service: No Tobacco: Smoking Status: Former smoker Alcohol: alcohol intake: current alcohol intake frequency: a few times a week Substance Use: substance use type: does not use Dietary Habits: caffeine: Yes Type: coffee, tea Review Of Systems (GEN) - Review of Systems Generalized/Overall Review: Present: Weakness. Absent: Chills, Fever Respiratory: Present: Cough, Shortness of Breath, Orthopnea, Wheezing Cardiac: Present: Edema. Absent: Chest Pain, Palpitations, Syncope Abdominal: Absent: Nausea, Vomiting, Abdominal Pain, Constipation Musculoskeletal: Present: Joint Pain, Joint Swelling Neurological: Present: Anxiety, Depressed Skin: Present: Dryness Immunizations: IMMUNIZATION HX Immunizations Up to Date Yes History of Influenza Vaccine Yes Hx Pneumococcal Vaccination No Allergies/Adverse Reactions: Allergies Allergy/AdvReac Type Severity Reaction Status Date / Time oxycodone [From Percocet] Allergy Verified 02/12/19 13:52 prednisone AdvReac Intermediate personality Verified 02/12/19 13:52 changes Home Medications: HOME MEDICATIONS Gabapentin 300 mg PO BID 07/13/18 [Last Taken Unknown] Melatonin 10 mg PO HS 07/13/18 [Last Taken Unknown] atorvastatin 20 mg tablet 20 mg PO HS #90 tab 08/22/18 [Last Taken Unknown] albuterol sulfate 90 mcg/actuation aerosol inhaler 2 inh IH Q8H PRN 02/12/19 [Last Taken Unknown] budesonide-formoterol HFA 160 mcg-4.5 mcg/actuation aerosol inhaler 2 puff IH BID g 02/12/19 [Last Taken Unknown] alprazolam 1 mg tablet 1 mg PO BID PRN #30 tab 02/13/19 [Last Taken Unknown] diltiazem HCl 180 mg capsule,extended release 24 hr See Rx Instructions .ROUTE .COMPLEX #30 cap 02/13/19 [Last Taken Unknown] fluoxetine 20 mg capsule 20 mg PO DAILY #30 cap 02/13/19 [Last Taken Unknown] hydrocodone 10 mg-acetaminophen 325 mg tablet 1 tab PO BID PRN #30 tab 02/13/19 [Last Taken Unknown] levothyroxine 50 mcg tablet 50 mcg PO DAILY #30 tab 02/13/19 [Last Taken Unknown] tamsulosin 0.4 mg capsule 0.4 mg PO DAILY #30 cap 02/13/19 [Last Taken Unknown] temazepam 30 mg capsule 30 mg PO HS #30 cap 02/13/19 [Last Taken Unknown] Exam - Exam Vital Signs: Vital Signs - Last Taken Temp 36.6 C 02/16/19 03:31 Pulse 85 02/16/19 03:31 Resp 20 02/16/19 03:31 BP 114/67 02/16/19 03:31 Pulse Ox 95 02/16/19 03:31 Constitutional: Present: Alert, Oriented x3, Cooperative ENT Exam: Present: hearing grossly normal Eye Exam: bilateral eye: normal inspection, PERRL, EOMI Neck: Present: non-tender, full range of motion, supple Respiratory: Present: no respiratory distress, no accessory muscle use, wheezing - exppiratory Cardiovascular/Chest: Present: normal peripheral pulses, regular rate, rhythm, no chest tenderness, no JVD Peripheral Pulses: dorsalis-pedis (R): 2+, dorsalis-pedis (L): 2+ Abdomen: Present: Normal bowel sounds, soft, nontender, nondistended Extremity: Present: normal range of motion, non-tender, lower extremity edema - Bilateral Skin Exam: Present: normal color, warm/dry Neurologic: Present: alert, oriented x 3 Appearance: Present: appropriate appearance Eye contact: Present: cooperative Diagnostic Studies: Abnormal Lab Results 02/15/19 02/15/19 02/15/19 Range/Units 18:20 18:47 19:21 RBC 4.55 L (4.7-6.0) M/mm3 Hgb 13.2 L (13.5-18.0) gm/dL Hct 41.4 L (42.0-52.0) % MCHC 31.9 L (32-36) g/dl Band Neuts % (Manual) 24 H (0-2.0) % Lymphocytes % (Manual) 8 L (20-51) % Lymphocytes # (Manual) 0.4 L (1.5-3.5) k/mm3 D-Dimer (0.19-0.49) ug/mL pO2 57.2 L (83.0-108.0) mmHg Base Excess -2.5 L (-2.0-3.0) mmol/L ABG O2 Sat (Measured) 90.2 L (94.0-98.0) % Potassium 4.8 H D (3.4-4.6) mmol/L BUN 42 H D (6-23) mg/dL Creatinine 1.62 H D (0.4-1.4) mg/dL Est GFR (Non-Af Amer) 44 L D (60-130) mL/min BUN/Creatinine Ratio 25.9 H (9.0-21.6) Random Glucose 113 H (70-110) mg/dL B-Natriuretic Peptide (5-650) pg/mL Albumin 3.3 L (3.4-5.0) gm/dl 02/15/19 02/15/19 Range/Units 19:48 19:48 RBC (4.7-6.0) M/mm3 Hgb (13.5-18.0) gm/dL Hct (42.0-52.0) % MCHC (32-36) g/dl Band Neuts % (Manual) (0-2.0) % Lymphocytes % (Manual) (20-51) % Lymphocytes # (Manual) (1.5-3.5) k/mm3 D-Dimer 1.37 H (0.19-0.49) ug/mL pO2 (83.0-108.0) mmHg Base Excess (-2.0-3.0) mmol/L ABG O2 Sat (Measured) (94.0-98.0) % Potassium (3.4-4.6) mmol/L BUN (6-23) mg/dL Creatinine (0.4-1.4) mg/dL Est GFR (Non-Af Amer) (60-130) mL/min BUN/Creatinine Ratio (9.0-21.6) Random Glucose (70-110) mg/dL B-Natriuretic Peptide 951 H (5-650) pg/mL Albumin (3.4-5.0) gm/dl Laboratory Results WBC 5.0 K/mm3 (4.0-10.5) 02/15/19 18:20 RBC 4.55 M/mm3 (4.7-6.0) L 02/15/19 18:20 Hgb 13.2 gm/dL (13.5-18.0) L 02/15/19 18:20 Hct 41.4 % (42.0-52.0) L 02/15/19 18:20 MCV 91.0 fl (78-100) 02/15/19 18:20 MCH 29.0 pg (27-31) 02/15/19 18:20 MCHC 31.9 g/dl (32-36) L 02/15/19 18:20 RDW 13.0 % (11.5-14.0) 02/15/19 18:20 Plt Count 183 K/mm3 (150-450) 02/15/19 18:20 MPV 9.1 fl (8-11.3) 02/15/19 18:20 Neutrophils % (Manual) 59 % (42-75) 02/15/19 18:20 Band Neuts % (Manual) 24 % (0-2.0) H 02/15/19 18:20 Lymphocytes % (Manual) 8 % (20-51) L 02/15/19 18:20 Monocytes % (Manual) 7 % (0-9) 02/15/19 18:20 Eosinophils % (Manual) 2 % (0-3) 02/15/19 18:20 Neutrophils # (Manual) 3.0 K/mm3 (1.3-6.0) 02/15/19 18:20 Lymphocytes # (Manual) 0.4 k/mm3 (1.5-3.5) L 02/15/19 18:20 Monocytes # (Manual) 0.4 k/mm3 (0.0-1.0) 02/15/19 18:20 Eosinophils # (Manual) 0.1 k/mm3 (0.0-0.7) 02/15/19 18:20 Toxic Granulation 2+ 02/15/19 18:20 Toxic Vacuolation Trace 02/15/19 18:20 Platelet Estimate Normal (NORMAL) 02/15/19 18:20 RBC Morphology Normal (NORMAL) 02/15/19 18:20 D-Dimer 1.37 ug/mL (0.19-0.49) H 02/15/19 19:48 pCO2 35.0 mmHg (35.0-48.0) 02/15/19 19:21 pO2 57.2 mmHg (83.0-108.0) L 02/15/19 19:21 HCO3 21.5 mmol/L (21.0-28.0) 02/15/19 19:21 Total CO2 22.6 mmol/L (19.0-24.0) 02/15/19 19:21 Base Excess -2.5 mmol/L (-2.0-3.0) L 02/15/19 19:21 ABG pH 7.41 (7.35-7.45) 02/15/19 19:21 ABG O2 Sat (Measured) 90.2 % (94.0-98.0) L 02/15/19 19:21 Sodium 135 mmol/L (132-142) 02/15/19 18:47 Plasma Sodium 135 mmol/L (130-142) 02/15/19 18:47 Potassium 4.8 mmol/L (3.4-4.6) H D 02/15/19 18:47 Chloride 102 mmol/L (97-106) 02/15/19 18:47 Carbon Dioxide 24.6 mmol/L (24-32.6) 02/15/19 18:47 Anion Gap 13.2 mmol/L (6.8-13.8) 02/15/19 18:47 BUN 42 mg/dL (6-23) H D 02/15/19 18:47 Creatinine 1.62 mg/dL (0.4-1.4) H D 02/15/19 18:47 Est GFR (Non-Af Amer) 44 mL/min (60-130) L D 02/15/19 18:47 BUN/Creatinine Ratio 25.9 (9.0-21.6) H 02/15/19 18:47 Random Glucose 113 mg/dL (70-110) H 02/15/19 18:47 Lactic Acid, Venous 1.6 mmol/L (0.4-2.0) 02/15/19 18:20 Calcium 8.2 mg/dL (7.9-10.9) 02/15/19 18:47 Calcium Adj for Albumin 8.4 mg/dL (8.4-10.2) 02/15/19 18:47 Total Bilirubin 1.1 mg/dL (0.0-1.1) 02/15/19 18:47 AST 18 U/L (0-48) 02/15/19 18:47 ALT 24 U/L (19-67) 02/15/19 18:47 Alkaline Phosphatase 75 U/L (50-170) 02/15/19 18:47 Troponin I Less than 0.017 ng/mL (0.00-0.10) 02/15/19 19:48 B-Natriuretic Peptide 951 pg/mL (5-650) H 02/15/19 19:48 Total Protein 6.7 gm/dL (6.2-8.2) 02/15/19 18:47 Albumin 3.3 gm/dl (3.4-5.0) L 02/15/19 18:47 Influenza Type A Ag Negative (NEGATIVE) 02/15/19 18:45 Influenza Type B Ag Negative (NEGATIVE) 02/15/19 18:45 Assessment/Plan - Narrative Narrative: Assessment/Plan 1. Acute Exacerbation of COPD - Levaquin 750 mg PO Daily x 7 days, day # 2/7 - Budenoside, Performist, Spiriva, Albuterol NEB - Methylprednisone 40 mg IV day # 2/5 - PT chest physio 2. New onset heart failure - BNP 921 - Will complete echo outpatient - Start Lasix 20 mg IV BID - Transition to PO in AM - Strict I'S& O's - Daily weight 3. Hypoxia not on home oxygen - Most likely secondary to a combination of Acute exacerbation of COPD and CHF - On 3L NC, SpO2 > 92-94% whilst awake and > 88% whilst sleeping - RT to evaluate for home oxygen use - Will attempt to wean off oxygen overnight pending RT evaluation. 4. Chronic Conditions - Continue home medications FEN: Heart Healthy, No added salt, Fluid restriction 1800ml DVT PPX: Lovenox 40 mg SC CODE STATUS: DNR/DNI DISPOSITION: Anticipate d/c within 24 hours Complete Echo outpatient - Assessment/Plan (1) New onset of congestive heart failure Problem: Acute (2) COPD with acute exacerbation Problem: Acute (3) Hypoxia Problem: Acute (4) Chronic pain syndrome Problem: Chronic (5) Depression Problem: Chronic Qualifiers: Depression Type: major depressive disorder Major depression recurrence: recurrent Active/Remission status: currently active Major depression episode severity: moderate Qualified Code(s): F33.1 - Major depressive disorder, recu rrent, moderate (6) Generalized anxiety disorder with panic attacks Problem: Chronic (7) GERD (gastroesophageal reflux disease) Problem: Chronic Qualifiers: Esophagitis presence: esophagitis presence not specified Qualified Code(s): K21.9 - Gastro-esophageal reflux disease without esophagitis (8) BPH (benign prostatic hyperplasia) Problem: Chronic Qualifiers: Lower urinary tract symptom presence: unspecified whether lower urinary tract symptoms present Qualified Code(s): N40.0 - Benign prostatic hyperplasia without lower urinary tract symptoms (9) Arthritis Problem: Chronic (10) AAA (abdominal aortic aneurysm) Problem: Chronic Qualifiers: Presence of rupture: without rupture Qualified Code(s): I71.4 - Abdominal aortic aneurysm, without rupture (11) Hypothyroidism Problem: Chronic Qualifiers: Hypothyroidism type: acquired Qualified Code(s): E03.9 - Hypothyroidism, unspecified
[2019-02-16 06:28] LABS: Hematocrit 40.2 % (42.0-52.0); Hemoglobin 13.3 gm/dL (13.5-18.0); Mean Cell Volume 90.1 fl (78-100); Mean Corpuscular Hemoglobin 29.8 pg (27-31); Mean Corpuscular Hgb Conc 33.1 g/dl (32-36); Mean Platelet Volume 8.6 fl (8-11.3); Platelet Count 148 K/mm3 (150-450); Red Blood Count 4.46 M/mm3 (4.7-6.0); Red Cell Distribution Width 12.6 % (11.5-14.0); White Blood Count 4.4 K/mm3 (4.0-10.5)
[2019-02-16 06:31] LABS: Total Cells Counted 100
[2019-02-16 06:40] LABS: Albumin * 3.2 gm/dl (3.4-5.0); Anion Gap 12.4 mmol/L (6.8-13.8); BUN/Creatinine Ratio 27.4 (9.0-21.6); Bilirubin, Total 0.8 mg/dL (0.0-1.1); Ca. Corrected For Albumin 8.6 mg/dL (8.4-10.2); Calcium * 8.3 mg/dL (7.9-10.9); Carbon Dioxide 25.3 mmol/L (24-32.6); Potassium 4.7 mmol/L (3.4-4.6); Total Protein 6.9 gm/dL (6.2-8.2)
[2019-02-16] MEDS ORDERED: FORMOTEROL FUMARATE 20 MCG/2 ML VIAL IH SCH (07:00)
[2019-02-16] MEDS ORDERED: LEVOTHYROXINE SODIUM 50 MCG TABLET PO SCH (07:00)
[2019-02-16] MEDS ORDERED: BUDESONIDE 0.25 MG/2 ML VIAL.NEB IH SCH (07:00)
[2019-02-16 07:05] LABS: Band 22 % (0-2.0); Lymphocyte 10 % (20-51); Monocyte 4 % (0-9); Neutrophil 64 % (42-75); Neutrophil # 2.8 K/mm3 (1.3-6.0)
[2019-02-16 07:06] LABS: Platelet Estimate Normal (NORMAL)
[2019-02-16 07:07] LABS: RBC Morphology Normal (NORMAL)
[2019-02-16 07:08] LABS: Toxic Granulation 1+
[2019-02-16] MEDS: ALBUTEROL SULFATE 2.5 MG/0.5 ML VIAL.NEB IH SCH ×3 (07:16→14:02)
[2019-02-16] MEDS ORDERED: METHYLPREDNISOLONE SOD SUCC/PF 40 MG/ML VIAL IV SCH (08:45)
[2019-02-16] MEDS ORDERED: TIOTROPIUM BROMIDE 5 CAP INHALER IH SCH (09:00)
[2019-02-16] MEDS ORDERED: DILTIAZEM HCL 180 MG CAP.SR.24H PO SCH (09:00)
[2019-02-16] MEDS ORDERED: ACETYLCYSTEINE 600 MG CAPSULE PO SCH (09:00)
[2019-02-16] MEDS ORDERED: GABAPENTIN 300 MG CAPSULE PO SCH (09:00)
[2019-02-16] MEDS ORDERED: FLUoxetine HCL 20 MG CAPSULE PO SCH (09:00)
[2019-02-16] MEDS ORDERED: THEOPHYLLINE ANHYDROUS 300 MG TAB.SR.12H PO SCH (09:00)
[2019-02-16] MEDS: ENOXAPARIN SODIUM 40 MG/0.4 ML SYRG SC SCH ×2 (09:34→11:06)
[2019-02-16] MEDS ORDERED: INSULIN LISPRO 100 UNITS/ML VIAL SC SCH (12:00)
--- NOTE | 2019-02-16 14:01 | DS ---
(1) COPD with acute exacerbation Problem: Acute (2) Hypoxia Problem: Acute (3) Metabolic encephalopathy Problem: Acute (4) Low back pain Problem: Chronic Qualifiers: Chronicity: chronic Back pain laterality: bilateral Sciatica presence: unspecified whether sciatica present Qualified Code(s): M54.5 - Low back pain; G89.29 - Other chronic pain (5) Memory loss or impairment Problem: Chronic (6) Chronic pain syndrome Problem: Chronic Date of Discharge:: 02/16/19 Hospital Course: Francisco is a 78-year-old male with PMHx of ASCVD, CVA, Aortic Aneurysm, LVH, COPD (former smoker), Dementia, GERD, BPH, Hypothyroidism, MDD, DANAY and OA admitted for SOB, Hypoxemia secondary to Acute exacerbation of COPD. Brought to the emergency department by his from home for generalized weakness and shakiness. He states that he began to not feel well yesterday. He has had a productive cough with yellow to brown sputum. His states that he has been agitated and somewhat confused for the past couple of days. No F/C. Upon arrival to ER, VSS with exception of hypoxemia and started 2-3 L NC with goal to maintain above 90-94%. CXR was consistent with Cardiomegaly and pulmonary vascular congestion, but no pleural effusion appreciated. EKG demonstrated NSR, RBBB with marked left axis deviation. Labs were significant for VIJAY on CKD, Hyperkalemia of 4.8, Hyperglycemia, 113, Low albumin of 3.3 and BNP of 951. Seen on [facility] [place], patient states he is not oxygen depedent, no history of heart failure that he is aware off. States he has been getting progressively SOB with exertion over the last couple of weeks. PE distant expiratory wheezing of LL BL, hard to appreciate any other breath sounds due to habitus with BL LE Edema This morning he is breathing much easier without difficulty. He does not have oxygen on at the time of my visit. He has walked in the halls and his oxygen saturations stayed in the upper 90s. I believe the IV steroids have helped him a lot but he is shaky and has been confused this morning suspect that is also from the steroids. He will be discharged to home. I will recommend home health but I doubt that he will accept it. [id number] for home health: Patrica Groves is confined to home due to chronic low back pain and poor mobility and inability to drive. He is also having more mental confusion and will be more comfortable in familiar surroundings. The need for shelter is for monitoring of respirations and lung sounds due to his recent acute exacerbation of COPD and hospitalization. He also needs medication management and monitoring and education. The need for physical therapy is for improved limb strengthening, mobility improvement and balance training. The need for occupational therapy is for improved dexterity and ADL independence. The need for home health care skilled services is directly related to the time spent [id number] with the person. Procedures Performed: none Care Plan Goals: Improved ventilation. Improve mobility. Plan of Treatment: Continue current meds. See me in the office in 2 weeks. Health Concerns: COPD, mental confusion, chronic low back pain, anxiety disorder Results and Findings: Lab Pending Results 02/15/19 18:20: WBC 5.0, RBC 4.55 L, Hgb 13.2 L, Hct 41.4 L, MCV 91.0, MCH 29.0, MCHC 31.9 L, RDW 13.0, Plt Count 183, MPV 9.1, Neutrophils % (Manual) 59, Band Neuts % (Manual) 24 H, Lymphocytes % (Manual) 8 L, Monocytes % (Manual) 7, Eosinophils % (Manual) 2, Neutrophils # (Manual) 3.0, Lymphocytes # (Manual) 0.4 L, Monocytes # (Manual) 0.4, Eosinophils # (Manual) 0.1, Toxic Granulation 2+, Toxic Vacuolation Trace, Platelet Estimate Normal, RBC Morphology Normal 02/15/19 18:20: Lactic Acid, Venous 1.6 02/15/19 18:45: Influenza Type A Ag Negative, Influenza Type B Ag Negative 02/15/19 18:47: Sodium 135, Plasma Sodium 135, Potassium 4.8 H D, Chloride 102, Carbon Dioxide 24.6, Anion Gap 13.2, BUN 42 H D, Creatinine 1.62 H D, Est GFR (Non-Af Amer) 44 L D, BUN/Creatinine Ratio 25.9 H, Random Glucose 113 H, Calcium 8.2, Calcium Adj for Albumin 8.4, Total Bilirubin 1.1, AST 18, ALT 24, Alkaline Phosphatase 75, Total Protein 6.7, Albumin 3.3 L 01/09/20 19:21: pCO2 35.0, pO2 57.2 L, HCO3 21.5, Total CO2 22.6, Base Excess - 2.5 L, ABG pH 7.41, ABG O2 Sat (Measured) 90.2 L 02/15/19 19:48: Troponin I Less than 0.017, B-Natriuretic Peptide 951 H 02/15/19 19:48: D-Dimer 1.37 H 02/16/19 06:20: WBC 4.4, RBC 4.46 L, Hgb 13.3 L, Hct 40.2 L, MCV 90.1, MCH 29.8, MCHC 33.1, RDW 12.6, Plt Count 148 L, MPV 8.6, Neutrophils % (Manual) 64, Band Neuts % (Manual) 22 H, Lymphocytes % (Manual) 10 L, Monocytes % (Manual) 4, Neutrophils # (Manual) 2.8, Lymphocytes # (Manual) 0.4 L, Monocytes # (Manual) 0.2, Toxic Granulation 1+, Toxic Vacuolation Trace, Platelet Estimate Normal, RBC Morphology Normal 02/16/19 06:20: Sodium 136, Plasma Sodium 137, Potassium 4.7 H, Chloride 103, Carbon Dioxide 25.3, Anion Gap 12.4, BUN 31 H, Creatinine 1.13, Est GFR (Non-Af Amer) 66 D, BUN/Creatinine Ratio 27.4 H, Random Glucose 156 H D, Calcium 8.3, Calcium Adj for Albumin 8.6, Total Bilirubin 0.8, AST 27, ALT 31, Alkaline Phosphatase 90, Total Protein 6.9, Albumin 3.2 L Discharge Location: Home Disposition: Home Health Service [facility] Condition: Stable Face to Face Encounter completed per CMS Guidelines: Yes - See above Discharge Activity: Activity as tolerated Discharge Diet: General/regular food Referrals: Yonatan Adams DO [Primary Care Provider] - Additional Patient Instructions (free text): Office in 2 weeks Prescriptions (Any new or edited meds): Levofloxacin [Levaquin] 500 mg PO DAILY #10 tab predniSONE [Prednisone] 10 mg PO DAILY 10 Days tab Complete Home Medications List: Complete Home Medication List: Gabapentin 300 mg PO BID 07/13/18 Melatonin 10 mg PO HS 07/13/18 atorvastatin 20 mg tablet 20 mg PO HS #90 tab 08/22/18 albuterol sulfate 90 mcg/actuation aerosol inhaler 2 inh IH Q8H PRN 02/12/19 budesonide-formoterol HFA 160 mcg-4.5 mcg/actuation aerosol inhaler 2 puff IH BID g 02/12/19 alprazolam 1 mg tablet 1 mg PO BID PRN #30 tab 02/13/19 diltiazem HCl 180 mg capsule,extended release 24 hr See Rx Instructions .ROUTE .COMPLEX #30 cap 02/13/19 fluoxetine 20 mg capsule 20 mg PO DAILY #30 cap 02/13/19 hydrocodone 10 mg-acetaminophen 325 mg tablet 1 tab PO BID PRN #30 tab 02/13/19 levothyroxine 50 mcg tablet 50 mcg PO DAILY #30 tab 02/13/19 tamsulosin 0.4 mg capsule 0.4 mg PO DAILY #30 cap 02/13/19 temazepam 30 mg capsule 30 mg PO HS #30 cap 02/13/19 Albuterol Sulfate [Albuterol Sulfate 2.5 MG/0.5ML] 2.5 mg INHALATION Q4HRT #60 vial.neb 02/16/19 Levofloxacin [Levaquin] 500 mg PO DAILY #10 tab 02/16/19 Tiotropium Ronan [Spiriva] 1 cap INHALATION DAILY #30 inhaler 02/16/19 predniSONE [Prednisone] 10 mg PO DAILY 10 Days tab 02/16/19 predniSONE [Prednisone] 10 mg PO DAILY 10 Days #10 tab 02/16/19
[2019-02-16 16:19] VITALS: BP 136/69
[2019-02-16] MEDS ORDERED: TAMSULOSIN HCL 0.4 MG CAP.SR.24H PO SCH (18:00)
[2019-02-16] MEDS ORDERED: FUROSEMIDE 10 MG/ML VIAL IV SCH (21:00)
[2019-02-16] MEDS ORDERED: TEMAZEPAM 15 MG CAPSULE PO SCH (21:00)
[2019-02-16] MEDS ORDERED: MELATONIN 3,000 MCG TABLET PO SCH (21:00)
[2019-02-16] MEDS ORDERED: ROSUVASTATIN CALCIUM 10 MG TABLET PO SCH (21:00)
== END 2019-02-16 15:20 | disposition home health service (06) ==
LOC: ER 17:26 → MS 17:26
PROVIDERS: ADMIT Family Medicine; ATTEND Family Medicine
CPT/HCPCS: 36415; 36600; 71020; 71046; 71275; 80053; 82803; 83519; 83605; 83880; 84484; 85025; 85379; 87040; 87400; 87449; 93005; 94640; 94664; 94667; 96365; 96375; 99285; G0378; Q9967